=== PATIENT | male | born 1985 | race Hispanic/Latino ===

== ENCOUNTER 2019-08-13 18:18 | Emergency (ER) | payer OTHER ==
[2019-08-13] MEDS ORDERED: SODIUM CHLORIDE 0.9% 1000ML 1,000 ML IV ONE ×2 (18:53→21:10)
[2019-08-13] MEDS ORDERED: ONDANSETRON HCL 4 MG/2 ML VIAL ONE (18:53)
[2019-08-13] MEDS ORDERED: ACETAMINOPHEN 325 MG TAB ONE (18:53)
[2019-08-13 18:57] LABS: BASOPHILS % (AUTO) 0.7 % (0.0-5.0); EOSINOPHILS % (AUTO) 0.1 % (0.0-8.0); HEMATOCRIT 40.8 % (42-54); MEAN CORPUSCULAR HEMOGLOBIN 31.4 pg (27.0-33.0); MEAN CORPUSCULAR HGB CONC 34.7 g/dL (32.0-36.0); MEAN CORPUSCULAR VOLUME 90.5 fL (79-99); MONOCYTES % (AUTO) 8.2 % (3.0-13.0); NUCLEATED RED BLOOD CELLS 0.1 % (0.0-0.19); PLATELET COUNT (AUTO) 148 K/uL (130-400); RED BLOOD CELL COUNT(AUTO) 4.51 MIL/uL (4.50-6.20); RED CELL DISTRIBUTION WIDTH 13.2 % (11.0-15.5); WHITE BLOOD COUNT (AUTO) 6.8 K/uL (4.8-10.8)
[2019-08-13 19:00] LABS: APPEARANCE,URINE Clear (CLEAR); BILIRUBIN,URINE Small (NEGATIVE); COLOR,URINE Dark Yellow (YELLOW); GLUCOSE, URINE (UA) Negative (NEGATIVE); KETONES,URINE Negative (NEGATIVE); LEUKOCYTE ESTERASE ,URINE Negative (NEGATIVE); NITRATE,URINE Negative (NEGATIVE); OCCULT BLOOD,URINE Negative (NEGATIVE); PH,URINE 6.5 (5.0-8.0); PROTEIN,URINE POS 1+ mg/dL (NEGATIVE)
[2019-08-13 19:25] LABS: POTASSIUM 3.9 mmol/L (3.5-5.1)
[2019-08-13 19:28] LABS: ALBUMIN 3.5 g/dL (3.5-5.0); BILIRUBIN,TOTAL 0.7 mg/dL (0.2-1.0); TOTAL PROTEIN, SERUM 7.5 g/dL (6.0-8.3)
[2019-08-13] MEDS ORDERED: DiphenhydrAMINE HCL 50 MG/ML VIAL ONE (19:43)
[2019-08-13] MEDS ORDERED: PROCHLORPERAZINE EDISYLATE 10 MG/2 ML VIAL ONE (19:44)
[2019-08-13 20:18] LABS: BACTERIA,URINE Few /HPF (None Seen); MUCUS,URINE Moderate LPF (None Seen); RBC,URINE 0-1 /HPF (0-1); SQUAMOUS EPITHELIAL CELL,UR Rare /HPF (0-2)
[2019-08-13 20:23] LABS: RAPID GROUP A STREP NEGATIVE (NEGATIVE)
[2019-08-13] MEDS ORDERED: DOXYCYCLINE 100MG+NS 250ML 250 ML IV ONE (21:09)
[2019-08-14] MEDS ORDERED: ACETAMINOPHEN EXTRA STRENGTH 500 MG TABLET ONE (01:56)
[2019-08-14] MEDS ORDERED: SODIUM CHLORIDE 0.9% 1000ML 1,000 ML IV SCH (03:00)
[2019-08-14] MEDS ORDERED: DOXYCYCLINE 100MG+NS 250ML 250 ML IV SCH (09:00)
[2019-08-14] MEDS ORDERED: PANTOPRAZOLE SODIUM 40 MG TABLET.DR PO SCH (09:00)
== END 2019-08-14 03:56 | disposition short-term general hospital (02) ==
LOC: EDH 18:18 → UNDOADMOB 21:06 → EDHIP 21:06 → 4BH 22:04 → EDHIP 22:17 → 4BH 22:17 → UNDODISOB 08-14 03:56 → EDH 08-14 03:56
DX: G43.909 Migraine, unspecified, not intractable, without status migrainosus (principal); A75.9 Typhus fever, unspecified; E86.0 Dehydration; E87.6 Hypokalemia; R79.89 Other specified abnormal findings of blood chemistry
CPT/HCPCS: 36415; 70450; 80053; 81001; 85025; 86000; 87040 ×2; 87804 ×2; 87880; 93005; 96361; 96365; 96366; 96375; 99285; J0780; J1200; J2405; J3490; J7030 ×2

== ENCOUNTER 2024-12-16 23:03 | Emergency (ER) | payer OTHER ==
[~2024-12-16] VITALS: Ht 170.2 cm; Wt 95.7 kg
--- NOTE | 2024-12-16 23:49 | ERN ---
General Chief Complaint: Testicular Injury/Pain Stated Complaint: ABD PAIN, TESTICULAR PAIN Time Seen by MD: 23:05 Source: patient History of Present Illness Initial Comments 39-year-old male otherwise healthy(although given a diagnosis of prediabetes by his primary care doctor) comes in with excruciating scrotal plain he says it starts in his left inguinal region and then migrates down into his scrotum. He said he had it last week when he saw his primary care doctor and she said that maybe he had some nerve pain. He comes in today because it is easily 10 times worse. He says he has been urinating normally and having normal bowel movements. He does say that he did not notice moist her at the tip of his penis spotting his underwear. The only other associated symptom is emesis. Allergies: Coded Allergies: No Known Drug Allergies (Verified Allergy, Unknown, 08/13/19) Past Medical History Past Medical History: No Pertinent History Past Surgical History: None ROS Dictation Except for the HPI review of systems as negative. Patient has no visual changes no headaches no decreased mental status, no chest pain no shortness of breath no heart palpitations, no GI symptoms other than nausea and emesis i.e. no dyspepsia no crampy abdominal pain anywhere else in his abdomen. He can move all of his extremities. Skin changes negative Physical Exam General Appearance: (+) severe distress Orientation: (+) alert Head/Face Trauma: No Eye: bilateral eye normal inspection, bilateral eye PERRL, bilateral eye EOMI Ear, Nose, Throat: (+) hearing grossly normal, (+) normal ENT inspection, (+) moist mucous membraine Neck: (+) supple Respiratory: (+) chest non-tender, (+) lungs clear Heart: (+) regular, (+) no gallop Vascular: (+) no edema, (+) normal peripheral pulse Gastrointestinal: (+) soft, (+) non-tender, (+) no organomegaly, (+) bowel sound present Genital: (+) testicular pain Genital Comment Patient has extreme testicular pain and tenderness. The tenderness is in the posterior surface of his left testicle and examination of his left inguinal canal shows no bowel; however, simply touching the spermatic cord causes a lot of pain in the patient. The skin color of the scrotum is normal and the scrotum is symmetrical to the right scrotum. MDM Pain in the left lower quadrant radiating down into the scrotum. Differential diagnosis includes left inguinal hernia, epididymitis, testicular artery thrombosis, testicular vein thrombosis, testicular torsion. I have ordered a stat testicular ultrasound. I will also order penile cultures for chlamydia and gonorrhea. Also give broad-spectrum antibiotics. A UA., possible urine culture. Single dose of ceftriaxone and fentanyl. Patient has not been able to urinate yet I will give him a bolus of fluid. The testicular ultrasound shows an enlarged epididymis on the left testicle that does seem to be good arterial flow into both testes and good venous outflow. I suspect the patient has epididymitis. I have sent for chlamydia and gonorrhea urine testing. If the UA comes back positive I will see if I can culture to check for E coli. Patient's significant other in the room states that she often gets urinary tract infections. Patient's pain is improved with the fentanyl. ED Course Orders Procedure Category Date Status Time Us Scrotum & Contents US 12/16/24 Taken 23:44 Fentanyl Citrate Pf PHA 12/17/24 Complete 0.05 Mg/Ml (Fentanyl 00:00 Ceftriaxone 1g Vial PHA 12/17/24 Complete (Rocephine 1g Inj) 00:00 Urinalysis Profile LAB 12/16/24 Logged 23:58 Chlamydia & Gc Pcr JOSE GUADALUPE 12/16/24 Logged 23:58 Lactated Ringers PHA 12/17/24 In Process 1000ml (Lactated 01:30 Current Medications Medications (Trade) Dose Ordered Sig/Abhijit Route PRN Reason Start Time Stop Time Status Last Admin Dose Admin Ceftriaxone Sodium (ROCEphine 1G INJ) 1 gm ONCE ONCE IVPB 12/17/24 00:00 12/17/24 00:01 DC 12/17/24 00:16 Fentanyl Citrate (FENTanyl CITRate PF 50 MCG/ 1 ML 2ML VIAL) 100 mcg ONCE ONCE IVP 12/17/24 00:00 12/17/24 00:01 DC 12/17/24 00:16 Lactated Ringer's 1,000 ml @ 0 mls/hr ONCE ONCE IV 12/17/24 01:30 12/17/24 01:31 Vital Signs Date Time Temp Pulse Resp B/P (MAP) Pulse Ox O2 Delivery O2 Flow Rate FiO2 12/17/24 00:29 80 17 107/70 96 Room Air* 0 21 12/16/24 23:04 97.9 73 20 130/83 98 Room Air DX & DISP Disposition: Discharge Departure Impression: Primary Impression: Epididymitis with no abscess Condition: Stable Scripts Oxycodone HCl (Oxycodone HCl) 10 Mg Tablet 1 TAB PO QIDP PRN for pain for 5 Days, #20 TAB 0 Refills Prov: KIRK GRIMES MD 12/17/24 Doxycycline Monohydrate (Doxycycline Monohydrate) 100 Mg Capsule 1 CAP PO BID for 10 Days, #20 CAP 0 Refills Prov: KIRK GRIMES MD 12/17/24 Additional Instructions: Keep scrotum elevated, treated with ice packs, do not put ice directly against the scrotum, do not leave ice packs on more than an hour at a time. Wrap ice packs in a towel. Pain should subside in 2-3 days. It will take several weeks for the inflammation to fully resolve. Please see your primary care doctor if symptoms have not improved or cleared in the next week. Referrals: LUDMILA SHAH MD (PCP) KIRK GRIMES MD Dec 16, 2024 23:49
[2024-12-17] MEDS: cefTRIAXone 1G VIAL IVPB ONE (00:16)
[2024-12-17] MEDS: FENTanyl CITRate PF 50 MCG/1 ML 2ML VIAL IVP ONE (00:16)
[2024-12-17] MEDS ORDERED: DOXY-466 PO (01:14)
[2024-12-17] MEDS ORDERED: OXYC10TA48 PO (01:15)
[2024-12-17] MEDS: LACTATED RINGERS 1000ML 1,000 ML IV ONE (01:22)
[2024-12-17 01:59] LABS: APPEARANCE,URINE CLOUDY (CLEAR); BILIRUBIN,URINE NEGATIVE (NEGATIVE); COLOR,URINE LIGHT-YELLOW (YELLOW); GLUCOSE, URINE (UA) NEGATIVE (NEGATIVE); KETONES,URINE 5 mg/dL (NEGATIVE); LEUKOCYTE ESTERASE ,URINE NEGATIVE Leu/uL (NEGATIVE); NITRATE,URINE NEGATIVE (NEGATIVE); OCCULT BLOOD,URINE LARGE (NEGATIVE); PH,URINE 5.5 (5.0-8.0); PROTEIN,URINE 20 mg/dL (NEGATIVE); UROBILINOGEN,URINE 0.2 mg/dL (0.2-1.0)
[2024-12-17 02:07] LABS: ADD UA MICROSCOPIC YES
[2024-12-17 02:08] LABS: BACTERIA,URINE FEW /HPF (None Seen); CALCIUM OXALATE CRYSTALS,UR RARE /LPF (None Seen); MUCUS,URINE FEW LPF (None Seen); RBC,URINE TNTC /HPF (0-1); SQUAMOUS EPITHELIAL CELL,UR RARE /HPF (0-2)
[2024-12-17 02:47] VITALS: BP 112/78; PULSE 79; RESP 18; TEMP 98.6; O2SAT 98
--- NOTE | 2024-12-17 08:11 | HMCIMG ---
ULTRASOUND OF THE TESTICLES ULTRASOUND ABD VASCULAR LIMITED INDICATION: Scrotal pain COMPARISON: None FINDINGS: The right testicle measures 4.5 x 2.6 x 2.7 cm. It is normal in echogenicity without mass. Small simple hydrocele without varicocele demonstrated. Right epididymal head measures 0.5 cm. The left testicle measures 4.2 x 2.7 x 3.0 cm. It is normal in echogenicity without mass. Small simple hydrocele and suspect very small left varicocele. Left epididymal head measures 0.7 cm. Left epididymal body and tail are slightly larger than the right and mild hyperemia may be present. Color Doppler flow is normal throughout the both testicles.Spectral Doppler analysis demonstrates a normal waveform pattern in regards to both testicles. IMPRESSION: Left epididymal body and tail are slightly larger than the right and mild hyperemia may be present suggesting mild epididymitis. Suspect very small left varicocele. Small simple bilateral hydroceles.
== END 2024-12-17 03:01 | disposition home or self-care (01) ==
LOC: EDH 23:03
DX: N45.1 Epididymitis (principal)
CPT/HCPCS: 99285; 87086; 87491; 87591; 81001; 76870; 96374; 96375; J7120; J3010; J0696